=== PATIENT | female | born 1960 | race American Indian/Alaskan Native ===

== ENCOUNTER 2020-12-28 11:17 | Outpatient (CLI) | payer OTHER ==
--- NOTE | 2020-12-28 13:04 | Mammography Report ---
RIGHT DIAGNOSTIC MAMMOGRAM INDICATION: Status post biopsy of right breast lesion at the 9:00 posterior position. COMPARISON: 12/08/2017. Ultrasound images obtained by Dr. Arias dated 12/28/2020. FINDINGS: Right breast CC, XCCL, LM, and MLO mammograms were obtained. A biopsy marker was not identi fied. This was discussed with Dr. Arias who states the biopsied mass is very far lateral and post erior, possibly outside the view of mammography. She states the biopsy clip appears appropriately pos itioned sonographically. IMPRESSION: Right breast mammograms failed to document the location of a biopsy marker placed following ultrasoun d-guided core biopsy. This was discussed with Dr. Arias who states the biopsied mass is very far lateral posterior, possibly outside the view of mammography. BI-RADS Category 4: Suspicious for Malignancy. Signer Name: Cj Martins MD Signed: 12/28/2020 12:59 PM Workstation Name: [id number]
== END 2020-12-28 11:18 | disposition home or self-care (01) ==
LOC: SPVWC 11:17
PROVIDERS: ATTEND Surgery
DX: N63.0 Unspecified lump in unspecified breast (principal); R92.8 Other abnormal and inconclusive findings on diagnostic imaging of breast

== ENCOUNTER 2020-12-29 12:02 | Outpatient (CLI) | payer OTHER | END 2020-12-29 12:03 | disposition home or self-care (01) | LOC: LABHHL 12:02 | PROVIDERS: ATTEND Surgery | DX: N63.41 Unspecified lump in right breast, subareolar (principal) | CPT/HCPCS: 88305; 88341; 88342 ==

== ENCOUNTER 2021-01-18 14:55 | Outpatient (CLI) | payer OTHER ==
--- NOTE | 2021-01-25 15:08 | Magnetic Resonance Report ---
MRI BREAST BILATERAL WITH AND WITHOUT CONTRAST, 01/21/2021 CLINICAL INFORMATION / INDICATION: BREAST CA C50.411. Right breast cancer. TECHNIQUE: Axial T1 and T2-weighted fat sat images were obtained precontrast. Gadolinium-based contra st was injected intravenously and serial axial T1 weighted images with fat saturation were obtained. 3-D MIP projections, kinetic analysis, and subtraction imaging were utilized to evaluate. A dedicated 8-channel breast coil was used for image acquisition. COMPARISON: Diagnostic right mammogram performed on 12/28/2020. FINDINGS: BREAST DENSITY: Scattered areas of fibroglandular density. BACKGROUND ENHANCEMENT: Moderate background enhancement within both breasts. RIGHT BREAST: A suspiciously enhancing mass is seen along the right axilla abutting the chest wall me asuring 3.3 x 1.9 cm on image 26 of series 4. The mass is located 12 cm from the nipple. A biopsy cli p is seen centrally within the mass. There is surrounding edema along the right axilla with extension along the outer right breast. Linear nonmass enhancement is seen in continuity with the mass along t he posterior and middle depth of the outer right breast. No other mass or other significant abnormali ty is identified in the right breast. LEFT BREAST: No dominant mass or suspicious area of enhancement in the left breast. AXILLAE: Multiple mildly enlarged thickened right axillary nodes are present that most likely represe nt metastatic disease. No left axillary adenopathy is seen. ADDITIONAL FINDINGS: Limited imaging of the thorax and upper abdomen demonstrates no focal abnormalit y. IMPRESSION: 1. Right breast cancer as above with probable metastatic right axillary nodes and adjacent nonmass en hancement extending into the posterior/middle depth of the right breast that could represent addition al sites of neoplastic disease. Other considerations for this enhancement could be reactive changes f rom mass effect by the known cancer. A limited right breast ultrasound would be helpful for further e valuation. 2. No evidence of malignancy in the left breast. Follow up recommendation: Ultrasound BI-RADS Category 0: Incomplete. Needs additional imaging evaluation and/or prior mammograms for violet rison. Signer Name: Kwaku Almanzar MD Signed: 01/25/2021 3:04 PM Workstation Name: [id number]
== END 2021-01-18 14:56 | disposition home or self-care (01) ==
LOC: SPVIMAG 14:55
PROVIDERS: ATTEND Surgery
DX: C50.411 Malignant neoplasm of upper-outer quadrant of right female breast (principal); N64.89 Other specified disorders of breast
CPT/HCPCS: A9575; C8908; 77049

== ENCOUNTER 2021-02-09 11:46 | Outpatient (CLI) | payer OTHER | END 2021-02-09 11:47 | disposition home or self-care (01) | LOC: SPVWC 11:46 | PROVIDERS: ATTEND Surgery | DX: C50.411 Malignant neoplasm of upper-outer quadrant of right female breast (principal) ==

== ENCOUNTER 2021-02-23 09:15 | Day surgery (SDC) | payer OTHER ==
[~2021-02-23 09:15] MED LIST: ACETAMINOPHEN 500 MG TAB PO SCH; BACITRACIN ZINC OINT 28.4 GM TP ONE; CELECOXIB 200 MG CAP PO NR; GABAPENTIN 300 MG CAP PO NR; LACTATED RINGERS 1,000 ML IV SCH; MIDAZOLAM 2 MG/2 ML INJ IV NR; SCOPOLAMINE TRANSDERMAL PATCH 72 HR TD NR; WATER FOR IRRIG STERILE 1,000 ML BOTTLE IR ONE; ceFAZolin/STERILE WATER 2 GM/20 ML SYRINGE IV NR; fentaNYL 100 MCG/2 ML INJ IV PRN
[2021-02-23] MEDS ORDERED: ONDANSETRON 4 MG/2 ML INJ IV PRN (10:33)
[2021-02-23] MEDS ORDERED: fentaNYL 100 MCG/2 ML INJ IV PRN (10:33)
--- NOTE | 2021-02-23 10:33 | Anesthesia Consultation ---
Anesthesia Consult and Med Hx Date of service: 02/23/21 - Airway Anesthetic Teeth Evaluation: Good ROM Head & Neck: Adequate Mental/Hyoid Distance: Adequate Mallampati Class: Class III Intubation Access Assessment: Possibly Difficult - Pre-Operative Health Status ASA Pre-Surgery Classification: ASA2 Proposed Anesthetic Plan: General Nerve Block: PECS II - Pulmonary Hx Smoking: No Hx Asthma: Yes (last inhaler use 3 wks ago) Hx Respiratory Symptoms: No Hx Sleep Apnea: Yes (+ CPAP) - Cardiovascular System Hx Hypertension: Yes (took nifedipine this morning) Hx Heart Attack/AMI: No Hx Percutaneous Transluminal Coronary Angioplasty (PTCA): No - Central Nervous System CVA: No - Endocrine Hx Renal Disease: No Hx Liver Disease: No Hx Insulin Dependent Diabetes: No Hx Non-Insulin Dependent Diabetes: No Hx Thyroid Disease: No - Other Systems Hx Cancer: Yes (breast ca) - Additional Comments Anesthesia Medical History Comments: No hx anesthetic complications. Reports allergy to morphine with reaction of "swelling" but does not remember additional details of her reaction. She has not had other opioid medications.
--- NOTE | 2021-02-23 10:33 | Anesthesia Day of Surgery ---
Anesthesia Day of Surgery - Day of Surgery Patient Examined: Yes Patient H&P Reviewed: Yes Patient is NPO: Yes
[2021-02-23] MEDS ORDERED: LIDOCAINE MPF (2%) 20 MG/1 ML VIAL 5 ML ONE (12:30)
[2021-02-23] MEDS ORDERED: dexAMETHasone 4 MG/ML VIAL ONE (12:39)
[2021-02-23] MEDS ORDERED: BUPIVACAINE/PF (0.5%) 5 MG/1 ML 30 ML VIAL INFILTRATI ONE (12:39)
[2021-02-23] MEDS ORDERED: METHYLENE BLUE 50 MG/10 ML AMP ONE (14:22)
[2021-02-23] MEDS ORDERED: SODIUM CHLORIDE P/F VIAL 10 ML 10 ML ONE (14:23)
[2021-02-23] MEDS ORDERED: propofoL 200 MG/20 ML VIAL IV ONE (14:25)
[2021-02-23] MEDS ORDERED: fentaNYL 100 MCG/2 ML INJ ONE (14:25)
[2021-02-23] MEDS ORDERED: METHYLENE BLUE 50 MG/10 ML AMP IRRIGATION ONE (14:53)
[2021-02-23] MEDS ORDERED: SODIUM CHLORIDE 0.9% P/F 10 ML VIAL INFILTRATI ONE (14:53)
[2021-02-23] MEDS ORDERED: dexAMETHasone 20 MG/5 ML VIAL ONE (15:15)
[2021-02-23] MEDS ORDERED: ONDANSETRON 4 MG/2 ML INJ ONE (15:15)
[2021-02-23] MEDS ORDERED: PHENYLEPHRINE/NS 1,000 MCG/10 ML SYRINGE (OR USE) IV ONE (15:16)
[2021-02-23] MEDS ORDERED: WATER FOR IRRIG STERILE 1,000 ML BOTTLE IR ONE (15:30)
[2021-02-23] MEDS ORDERED: LACTATED RINGERS 1,000 ML ONE (15:45)
[2021-02-23] MEDS ORDERED: BACITRACIN ZINC OINT 28.4 GM TP ONE (17:00)
--- NOTE | 2021-02-23 18:09 | Short Stay Summary ---
Short Stay Documentation Date of service: 02/23/21 - History H&P: obtained from office - Allergies and Medications Current Medications: Allergies morphine Allergy (Verified 02/14/21 14:56) Anaphylaxis peanut Allergy (Verified 02/14/21 14:56) Anaphylaxis grass pollen Adverse Reaction (Verified 02/14/21 14:56) Itching FISH Allergy (Uncoded 02/14/21 14:56) Anaphylaxis FLOWE Adverse Reaction (Uncoded 02/14/21 14:56) Itching Home Medications Medication Instructions Recorded Confirmed Last Taken Type Albuterol Mdi (or & Nicu Only) 1 puff IH PRN PRN 02/14/21 02/23/21 Unknown History [ProAir HFA Inhaler] Fluticasone [Flonase] 1 spray NS QDAY 02/14/21 02/14/21 Unknown History Losartan [Cozaar] 25 mg PO QDAY 02/14/21 02/23/21 02/22/21 09:00 History NIFEdipine [Nifedipine ER] 30 mg PO DAILY 02/14/21 02/23/21 02/23/21 07:00 History Ibuprofen [Motrin 800 MG tab] 800 mg PO Q8HR PRN #20 tablet 02/23/21 Unknown Rx Active Medications Acetaminophen (Acetaminophen 500 Mg Tab) 1,000 mg PO PREOP ROMAN Last Admin: 02/23/21 10:30 Dose: 1,000 mg Documented by: Cefazolin Sodium (Cefazolin/Sterile Water 2 Gm/20 Ml Syringe) 2 gm IV PREOP NR Stop: 02/23/21 22:00 Celecoxib (Celecoxib 200 Mg Cap) 200 mg PO PREOP NR Stop: 02/23/21 23:59 Last Admin: 02/23/21 10:30 Dose: 200 mg Documented by: Fentanyl (Fentanyl 100 Mcg/2 Ml Inj) 100 mcg IV ONCE PRN PRN Reason: sedation for nerve block Last Admin: 02/23/21 12:43 Dose: 100 mcg Documented by: Fentanyl (Fentanyl 100 Mcg/2 Ml Inj) 50 mcg IV Q5MIN PRN PRN Reason: Pain , Severe (7-10) Stop: 02/23/21 22:00 Gabapentin (Gabapentin 300 Mg Cap) 300 mg PO PREOP NR Stop: 02/24/21 05:59 Last Admin: 02/23/21 10:30 Dose: 300 mg Documented by: Lactated Ringer's (Lactated Ringers) 1,000 mls @ 100 mls/hr IV DIRECT ROMAN Stop: 02/23/21 23:59 Last Admin: 02/23/21 10:30 Dose: 100 mls/hr Documented by: Midazolam HCl (Midazolam 2 Mg/2 Ml Inj) 2 mg IV PREOP NR Stop: 02/24/21 05:59 Last Admin: 02/23/21 12:43 Dose: 2 mg Documented by: Scopolamine (Scopolamine Transdermal Patch 72 Hr) 1 each TD PREOP NR Stop: 02/24/21 05:59 Last Admin: 02/23/21 10:30 Dose: 1 each Documented by: - Brief post op/procedure progress note Date of procedure: 02/23/21 Pre-op diagnosis: Right breast cancer upper outer quadrant Post-op diagnosis: same Procedure: Right partial mastectomy with SLNB Anesthesia: GETA Findings: Right breast mass and clip present; x4 SLNS; mass adherent to chest wall Surgeon: PATEL LASSITER Estimated blood loss: 50-100ml Pathology: list Specimen disposition: to lab Condition: stable - Disposition Condition at discharge: Good Disposition: DC-01 TO HOME OR SELFCARE Short Stay Discharge Plan Activity: other (no heavy lifting) Diet: regular Wound: keep clean and dry (wear breast binder; apply bacitracin to breast twice daily; may shower in 48 hours; no baths, pools or lakes; call MD if drain output greater than 50 cc in one hour; JUSTIN drain to bulb suction) Follow up with: PATEL LASSITER MD [Staff Physician] - 7 Days Prescriptions: Ibuprofen [Motrin 800 MG tab] 800 mg PO Q8HR PRN #20 tablet PRN Reason: Pain , Severe (7-10)
--- NOTE | 2021-02-23 18:22 | Operative Report ---
Operative Report Operative Report: Operative Report: February 23, 2021 Preoperative diagnosis: Right breast cancer of the upper outer quadrant Postoperative diagnosis: Same Procedure: Right breast partial mastectomy of the upper outer quadrant with SLNB Surgeon: Jessy Arias MD Forest Supervisor: Rachael Figueroa MD Anesthesia: General Findings: Right breast mass and clip present within radiograph specimen with posterior aspect of mass adherent to chest wall; x4 SLNs Complications: None Drains: 15 Fr JUSTIN EBL: 50-100 cc Disposition: PACU in good condition Indications for operative procedure: This is a 60 year old lady with newly diagnosed right breast cancer of the upper outer quadrant, IDCA grade 3, Stage I-IIB [id number] OR positive (9:00 position 10-12 cm FN). Recommendations were to proceed with breast conservation. She understands the role of adjuvant radiation therapy and Oncotype DX will be obtained by medical oncology to determine if adjuvant chemotherapy is indicated. She wished to proceed with the above procedure. Procedure in detail: Anesthesia placed right pectoral block. Patient was then taken to the operating room. Gen. anesthesia was administered. The right nipple was injected with radioisotope and 1 cc of methylene blue dye. Right breast and axilla were prepped and draped in the normal sterile operative fashion. Timeout was performed. Gamma probe was inserted into the axilla. The area of hot spot was identified. A right axillary incision was made with a 15 blade knife with dissection taken down to the subcutaneous tissues. The axillary fascia was opened with the Bovie cautery. 4 SLNs were identified and dissected free with blue dye present in 3 lymph nodes. All remaining counts were less than 10% of the highest count. Lymph node were sent to pathology for permanent processing. Hemostasis was obtained in the right axillary cavity. Axillary cavity was appropriately irrigated and suctioned. Hemostasis was noted. Axillary fascia was approximated and closed using interrupted 3-0 Vicryl and the skin brought together and closed using a running 4-0 Monocryl followed by skin affix. Attention was then taken towards the right breast. Ultrasound was used to kojo the area of incision; known breast malignancy at 9:00 position 10-12 cm FN. A lateral breast incision was made around 9:00 position was made with a 15 blade knife and dissection taken down to subcutaneous tissues. First began raising of the superior flap with dissection taken superiorly past the area of known ma lignancy and then taken down to the pectoralis muscle, followed by raising of the inferior flap, medial flap and lateral flap with all flaps taken past the area of known malignancy and then posteriorly down to the pectoralis muscle. The mass was adherent to the chest wall with muscle resected in order to removed the mass using the Bovie cautery. Additional suspicious nodule was located on the muscled as well of less than 1 cm that was resected using the Bovie Cautery with muscle removed as well. Specimen was marked and then sent to pathology and radiology; radiograph specimen with mass and clip present. Breast cavity was irrigated and hemostasis was obtained. A 15 Setswana JUSTIN drain was placed in the breast cavity and 2-0 Nylon sutured in placed onto the skin. Then proceeded with complex closure. The posterior deep breast tissues were then mobilized to approximate and cover pectoralis muscle; closed using interrupted 3-0 Vicryl. Deep breast tissues were then approximated and close using interrupted 3-0 Vicryl. The subcutaneous tissues were then approximated and closed using interrupted 3-0 Vicryl followed by closing of the skin with a running 4-0 Monocryl and skin affix. The patient tolerated surgery very well and she was awaken from anesthesia without any complication and transported to PACU in good condition.
--- NOTE | 2021-02-23 18:41 | Post Anesthesia Evaluation ---
- Post Anesthesia Evaluation Patient Participated: Yes Airway Patent: Yes Stable Respiratory Function: Yes Nausea/Vomiting: No Temp > 96.8F: Yes Pain Manageable: Yes Adequeate Hydration: Yes Anesthesia Complications: No
[2021-02-23 19:17] VITALS: BP 136/81
--- NOTE | 2021-02-25 08:32 | Mammography Report ---
RIGHT BREAST SPECIMEN RADIOGRAPH INDICATION: Right breast target lesion: mass. COMPARISON: Right breast ultrasound from 02/09/2021. Diagnostic right mammogram from 12/28/2020. FINDINGS: A single biopsy clip is seen in the submitted specimen without clear identification of a mass. IMPRESSION: Right breast specimen as above without clear visualization of mass. Please correlate with the operati ve findings and the pathology report for the specimen. Signer Name: Kwaku Almanzar MD Signed: 02/25/2021 8:28 AM Workstation Name: [id number]
== END 2021-02-23 18:35 | disposition home or self-care (01) ==
LOC: OR 09:15
PROVIDERS: ATTEND Surgery
DX: C50.411 Malignant neoplasm of upper-outer quadrant of right female breast (principal); Z20.822 Contact with and (suspected) exposure to COVID-19; I10 Essential (primary) hypertension; J45.909 Unspecified asthma, uncomplicated; G47.30 Sleep apnea, unspecified; Z88.5 Allergy status to narcotic agent; Z91.010 Allergy to peanuts; Z91.013 Allergy to seafood; Z88.8 Allergy status to other drugs, medicaments and biological substances; Z79.899 Other long term (current) drug therapy; Z90.710 Acquired absence of both cervix and uterus; Z98.891 History of uterine scar from previous surgery; Z98.890 Other specified postprocedural states
CPT/HCPCS: 19301; 38525; 38792; 64450; 76098; 78800; 88305; 88307; 88341; 88342; 88368; A9541; J0690; J1100; J2250; J2370; J2405; J2704; J3010; J7120; Q9968; U0003; 88333

== ENCOUNTER 2021-03-11 05:57 | Day surgery (SDC) | payer OTHER ==
[2021-03-09 12:30] LABS: Hematocrit 40.6 % (30.3-42.9); Mean Corpuscular HGB Conc 34 % (30-34); Mean Corpuscular Volume 90 fl (79-97); Platelet Count 351 K/mm3 (140-440)
[2021-03-11] MEDS ORDERED: VANCOMYCIN/NS 1 GM/250 ML 1 GM/250 ML BAG IV NR (06:00)
[2021-03-11] MEDS ORDERED: CELECOXIB 200 MG CAP PO NR (06:00)
[2021-03-11] MEDS ORDERED: ACETAMINOPHEN 500 MG TAB PO SCH (06:00)
[2021-03-11] MEDS ORDERED: MIDAZOLAM 2 MG/2 ML INJ IV NR (06:00)
[2021-03-11] MEDS ORDERED: GABAPENTIN 300 MG CAP PO NR (06:00)
[2021-03-11] MEDS ORDERED: LACTATED RINGERS 1,000 ML IV SCH (06:00)
[2021-03-11] MEDS ORDERED: BACTERIOSTATIC SODIUM CHLORIDE 0.9% 30 ML VIAL INFILTRATI ONE (06:04)
--- NOTE | 2021-03-11 07:03 | Anesthesia Consultation ---
Anesthesia Consult and Med Hx Date of service: 03/11/21 - Airway Anesthetic Teeth Evaluation: Good, Partials Mental/Hyoid Distance: Adequate Mallampati Class: Class II Intubation Access Assessment: Good - Pulmonary Exam CTA: Yes - Cardiac Exam Cardiac Exam: RRR - Pre-Operative Health Status ASA Pre-Surgery Classification: ASA2 Proposed Anesthetic Plan: General - Pulmonary Hx Smoking: No Hx Asthma: Yes Hx Respiratory Symptoms: No Hx Sleep Apnea: Yes (+ CPAP COMPLIANT) - Cardiovascular System Hx Hypertension: Yes Hx Heart Attack/AMI: No Hx Percutaneous Transluminal Coronary Angioplasty (PTCA): No - Central Nervous System CVA: No Hx Psychiatric Problems: No - Endocrine Hx Renal Disease: No Hx Liver Disease: No Hx Insulin Dependent Diabetes: No Hx Non-Insulin Dependent Diabetes: No Hx Thyroid Disease: No - Hematic Hx Sickle Cell Disease: No - Other Systems Hx Alcohol Use: Yes (OCC- WINE) Hx Substance Use: No Hx Cancer: Yes
--- NOTE | 2021-03-11 07:03 | Anesthesia Day of Surgery ---
Anesthesia Day of Surgery - Day of Surgery Patient Examined: Yes Patient H&P Reviewed: Yes Patient is NPO: Yes
[2021-03-11] MEDS ORDERED: propofoL 200 MG/20 ML VIAL IV ONE (07:16)
[2021-03-11] MEDS ORDERED: BUPIVACAINE/PF (0.25%) 2.5 MG/ML 30 ML VIAL INFILTRATI ONE ×2 (07:19→08:29)
[2021-03-11] MEDS ORDERED: LIDOCAINE (1%) 10 MG/1 ML VIAL 20 ML MDV ONE (07:19)
[2021-03-11] MEDS ORDERED: SCOPOLAMINE TRANSDERMAL PATCH 72 HR TD NR (07:30)
[2021-03-11] MEDS ORDERED: ONDANSETRON 4 MG/2 ML INJ IV PRN (08:00)
[2021-03-11] MEDS ORDERED: NEOMY 40 MG/POLYMYXIN B 200,000 UNITS/ML (GU) AMPULE IR ONE ×2 (08:16→08:23)
[2021-03-11] MEDS ORDERED: WATER FOR IRRIG STERILE 1,500 ML BOTTLE IR ONE (08:23)
[2021-03-11] MEDS ORDERED: BACITRACIN ZINC OINT 28.4 GM TP ONE ×2 (08:26→08:30)
[2021-03-11] MEDS ORDERED: LIDOCAINE (1%) 10 MG/1 ML VIAL 20 ML MDV INFILTRATI ONE (08:28)
[2021-03-11] MEDS ORDERED: dexAMETHasone 20 MG/5 ML VIAL ONE (08:35)
[2021-03-11] MEDS ORDERED: LIDOCAINE MPF (2%) 20 MG/1 ML VIAL 5 ML ONE (08:42)
[2021-03-11] MEDS ORDERED: ONDANSETRON 4 MG/2 ML INJ ONE (08:42)
[2021-03-11] MEDS: HYDROmorphone 1 MG/1 ML INJ IV PRN ×2 (09:15→09:46)
--- NOTE | 2021-03-11 09:20 | Short Stay Summary ---
Short Stay Documentation Date of service: 03/11/21 - History H&P: obtained from office - Allergies and Medications Current Medications: Allergies morphine Allergy (Verified 02/14/21 14:56) Anaphylaxis peanut Allergy (Verified 02/14/21 14:56) Anaphylaxis christian Adverse Reaction (Verified 03/04/21 10:11) Itching grass pollen Adverse Reaction (Verified 02/14/21 14:56) Itching FISH Allergy (Uncoded 02/14/21 14:56) Anaphylaxis Home Medications Medication Instructions Recorded Confirmed Last Taken Type Albuterol Mdi (or & Nicu Only) 1 puff IH PRN PRN 02/14/21 02/23/21 03/06/21 History [ProAir HFA Inhaler] Fluticasone [Flonase] 1 spray NS QDAY 02/14/21 03/11/21 03/06/21 History Losartan [Cozaar] 25 mg PO QDAY 02/14/21 03/11/21 03/10/21 History NIFEdipine [Nifedipine ER] 30 mg PO DAILY 02/14/21 03/11/21 03/11/21 04:50 History Adult Probiotic 1 cap PO DAILY 03/04/21 03/04/21 03/10/21 History Ibuprofen [Motrin 800 MG tab] 800 mg PO PRN PRN 03/04/21 03/11/21 2 Weeks Ago History ~02/25/21 [facility] For Women 1 dose PO DAILY 03/04/21 03/11/21 03/10/21 History Ibuprofen [Motrin 800 MG tab] 800 mg PO Q8HR PRN #12 tablet 03/11/21 Unknown Rx cephALEXin [Keflex] 500 mg PO Q12HR #14 cap 03/11/21 Unknown Rx Active Medications Acetaminophen (Acetaminophen 500 Mg Tab) 1,000 mg PO PREOP ROMAN Stop: 03/11/21 21:00 Last Admin: 03/11/21 06:35 Dose: 1,000 mg Documented by: Celecoxib (Celecoxib 200 Mg Cap) 200 mg PO PREOP NR Stop: 03/11/21 21:00 Last Admin: 03/11/21 06:35 Dose: 200 mg Documented by: Gabapentin (Gabapentin 300 Mg Cap) 300 mg PO PREOP NR Stop: 03/11/21 21:00 Last Admin: 03/11/21 06:35 Dose: 300 mg Documented by: Hydromorphone HCl (Hydromorphone 1 Mg/1 Ml Inj) 0.5 mg IV Q10MIN PRN PRN Reason: Pain , Severe (7-10) Stop: 03/11/21 17:00 Vancomycin HCl (Vancomycin/Ns 1 Gm/250 Ml) 1 gm in 250 mls @ 166.667 mls/hr IV PREOP NR; Protocol Stop: 03/11/21 23:00 Last Admin: 03/11/21 07:16 Dose: 166.667 mls/hr Documented by: Lactated Ringer's (Lactated Ringers) 1,000 mls @ 100 mls/hr IV DIRECT ROMAN Stop: 03/11/21 23:59 Last Admin: 03/11/21 06:45 Dose: 100 mls/hr Documented by: Midazolam HCl (Midazolam 2 Mg/2 Ml Inj) 2 mg IV PREOP NR Stop: 03/11/21 21:00 Last Admin: 03/11/21 07:05 Dose: 2 mg Documented by: Ondansetron HCl (Ondansetron 4 Mg/2 Ml Inj) 4 mg IV ONCE PRN PRN Reason: Nausea And Vomiting Stop: 03/11/21 18:00 Scopolamine (Scopolamine Transdermal Patch 72 Hr) 1 each TD PREOP NR Stop: 03/11/21 20:00 Last Admin: 03/11/21 07:05 Dose: 1 each Documented by: - Brief post op/procedure progress note Date of procedure: 03/11/21 Pre-op diagnosis: Right breast cancer with positive medial margin Post-op diagnosis: same Procedure: Right breast medial margin revision Anesthesia: GETA Findings: medial margin revision Surgeon: PATEL LASSITER Estimated blood loss: minimal Pathology: list Specimen disposition: to lab Condition: stable - Disposition Condition at discharge: Good Disposition: DC-01 TO HOME OR SELFCARE Short Stay Discharge Plan Activity: other (no heavy lifting) Diet: regular Wound: keep clean and dry (may shower in 48 hours; no baths, pools or lakes; keep drain site clean and dry; wear breast binder) Follow up with: PATEL LASSITER MD [Staff Physician] - 7 Days Prescriptions: cephALEXin [Keflex] 500 mg PO Q12HR #14 cap Ibuprofen [Motrin 800 MG tab] 800 mg PO Q8HR PRN #12 tablet PRN Reason: Pain , Severe (7-10)
--- NOTE | 2021-03-11 09:29 | Operative Report ---
Operative Report Operative Report: Operative Report: Date of Service: March 11, 2021 Preoperative diagnosis: Right breast cancer of the upper outer quadrant with positive medial margin Postoperative diagnosis:Same Procedure: Right breast medial margin revision Surgeon: Jessy Arias MD Anesthesia: General Findings: Medial margin revision Complications: None EBL: Minimal Drains: 15 Fr JUSTIN Disposition: PACU in good condition Indications for operative procedure: This is a 60 year old lady with newly diagnosed Stage IIB left breast cancer of the upper outer quadrant, [id number] triple negative. 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 Recommendations were to proceed with medial margin revision. Patient wished to proceed with the above procedure. She understands the role of adjuvant chemoradiation therapy. Procedure in detail: The patient was taken to the operating room and was placed supine. General anesthesia was administered. The right breast was prepped and draped in the normal sterile operative fashion. Timeout was performed. Skin incision was made through the prior breast incision with a 15 blade knife at 9:00 position lateral breast. Subcutaneous tissues were opened with the aid of the Bovie cautery and knife. Minimal seroma cavity was encountered and suctioned. Hemostasis was noted. The area of revision was grasped with an Lilian clamp and the medial margin was then revised using the Bovie cautery. Specimen was marked and sent to pathology. Hemostasis was obtained with the Bovie cautery. Breast cavity was anesthetized with 1% lidocaine mixed with quarter percent Marcaine. Then proceeded with complex closure. The deep breast tissue was approximated and closed using interrupted 3-0 Vicryl and skin brought together and closed using a running 4-0 Monocryl followed by skin affix. She tolerated surgery very well and was awaken from anesthesia without any complications and transported to PACU in good condition.
[2021-03-11 11:04] VITALS: BP 118/69
== END 2021-03-11 11:00 | disposition home or self-care (01) ==
LOC: OR 05:57
PROVIDERS: ATTEND Surgery
DX: C50.411 Malignant neoplasm of upper-outer quadrant of right female breast (principal); Z20.822 Contact with and (suspected) exposure to COVID-19; I10 Essential (primary) hypertension; J45.909 Unspecified asthma, uncomplicated; G47.30 Sleep apnea, unspecified; Z98.891 History of uterine scar from previous surgery; Z88.5 Allergy status to narcotic agent; Z91.013 Allergy to seafood; Z88.8 Allergy status to other drugs, medicaments and biological substances; Z91.010 Allergy to peanuts; Z79.899 Other long term (current) drug therapy; Z72.89 Other problems related to lifestyle; Z98.890 Other specified postprocedural states
CPT/HCPCS: 19301; 36415; 85027; 88307; 88341; 88342; J1100; J1170; J2250; J2405; J2704; J3370; J7120; U0003